=== PATIENT | male | born 1965 ===

== ENCOUNTER 2023-09-07 15:58 | Emergency (ER) | payer MEDICAID, OTHER ==
[2023-09-07] MEDS: Ketorolac 30 MG/ML SDV IM ONE (18:57)
[2023-09-07] MEDS: Orphenadrine 60 MG/2 ML Inj IM ONE (18:57)
== END 2023-09-07 19:04 | disposition home or self-care (01) ==
LOC: MW.ED 15:58
DX: S49.91XA Unspecified injury of right shoulder and upper arm, initial encounter (principal); F17.210 Nicotine dependence, cigarettes, uncomplicated; Z75.8 Other problems related to medical facilities and other health care; V87.8XXA Person injured in other specified noncollision transport accidents involving motor vehicle (traffic), initial encounter; Y92.410 Unspecified street and highway as the place of occurrence of the external cause
CPT/HCPCS: 73030; 96372; 99283; J1885; J2360